=== PATIENT | female | born 1955 | race Caucasian/White ===

== ENCOUNTER 2016-05-09 08:23 | Day surgery (SDC) | payer MEDICAID ==
[~2016-05-09 08:23] MED LIST: RINGERS SOLUTION,LACTATED 1,000 ML IV PRN
[2016-05-09 08:43] LABS: Hematocrit 40.9 % (37.0-47.0); Hemoglobin 13.6 gm/dL (12.5-16.0); Mean Cell Volume 94.2 fl (78-100); Mean Corpuscular Hemoglobin 31.3 pg (27-31); Mean Corpuscular Hgb Conc 33.3 g/dl (32-36); Mean Platelet Volume 9.1 fl (6.0-9.5); Neutrophil % 50.5 % (42-75.0); Platelet Count 207 K/mm3 (150-450); Red Blood Count 4.34 M/mm3 (4.2-5.4); Red Cell Distribution Width 11.7 % (11.5-14.0); White Blood Count 3.9 K/mm3 (4.0-10.5)
[2016-05-09] MEDS ORDERED: RINGERS SOLUTION,LACTATED 1,000 ML IV ONE (08:54)
[2016-05-09] MEDS ORDERED: oxyCODONE HCL/ACETAMINOPHEN 1 TAB TABLET PO PRN (10:17)
[2016-05-09] MEDS ORDERED: IBUPROFEN 600 MG TABLET PO PRN (10:18)
[2016-05-09 11:24] VITALS: BP 105/65
--- NOTE | 2016-05-09 14:02 | OR ---
Operative Report - Dictated Report Narrative: Operative Report: 05/09/2016 Hysteroscopy Dilatation and Curettage Preoperative Diagnosis: Abnormal Appearance of the Endometrium Postoperative Diagnosis: Abnormal Appearance of the Endometrium Procedure: Hysteroscopy Dilatation and Curettage Surgeon: Shruti Solo M.D. Anesthesia: Lizandro Bolanos LUMBER CARRIER, IV sedation Findings: Uterine sound was 8 cm. There was a endometrial polyp on the right aspect of the endometrium just inside the internal cervical os which was removed under hysteroscopic guidance. There was a possible polyp on the left aspect of the endometrium as well which was removed with hysteroscopic guidance Fluids: 400 ml EBL: Minimal Drains: None Complications: None Condition: Stable Pathology: Endometrial curettings and polyp Procedure: The patient was taken to the operating room with IV fluids running. She was placed in the dorsal lithotomy position after anesthesia was induced. A bivalve speculum was placed in the vagina. The anterior lip of the cervix was grasped with a single-tooth tenaculum. Uterine sound was passed into the endometrial cavity with ease. Uterine sound was 8 cm. The cervix was dilated with Malik dilators. The hysteroscope was introduced into the endometrial cavity. The cavity was distended with normal saline. [place] were visualized bilaterally. There was evidence of endometrial polyp on the right aspect of the endometrium just inside internal cervical os which was removed. The hysteroscope was removed. The cavity was sharply curetted without difficulty. The hysteroscope was once again introduced into the cavity. There was a probable endometrial polyp on the left aspect of the endometrium which was removed under hysteroscopic guidance. The cavity was completely curetted. The hysteroscope was removed. The single-tooth tenaculum was removed. Sites were hemostatic. The speculum was removed from the vagina. Sponge counts were correct 2. The patient tolerated the procedure well.
== END 2016-05-09 08:24 | disposition home or self-care (01) ==
LOC: AMB 08:23
PROVIDERS: ATTEND Obstetrics & Gynecology
PROC: 0UDB8ZX Extraction of Endometrium, Via Natural or Artificial Opening Endoscopic, Diagnostic (ICD-10-PCS; principal; 2016-05-09 09:30)
DX: N84.0 Polyp of corpus uteri (principal); Z68.22 Body mass index [BMI] 22.0-22.9, adult; Z85.3 Personal history of malignant neoplasm of breast

== ENCOUNTER 2016-11-01 08:58 | Day surgery (SDC) | payer MEDICAID ==
[2016-11-01] MEDS ORDERED: RINGERS SOLUTION,LACTATED 1,000 ML IV ONE (09:37)
[2016-11-01] MEDS ORDERED: LIDOCAINE HCL/EPINEPHRINE 50 ML VIAL IJ ONE (09:55)
--- NOTE | 2016-11-01 10:32 | OR ---
Operative Report - Dictated Report Narrative: DATE OF PROCEDURE: 11/01/2016 INDICATION: Postmenopausal bleeding with endometrial thickening on pelvic ultrasound PREOPERATIVE DIAGNOSIS: Postmenopausal bleeding, endometrial thickening on pelvic ultrasound POSTOPERATIVE DIAGNOSIS: Same PROCEDURE: Hysteroscopy, D&C , Polypectomy SURGEON: Mallika Deshpande D.O. DRIVER GUARD: OR staff ANESTHESIA: IV sedation, Paracervical block ESTIMATED BLOOD LOSS: minimal URINE OUTPUT: not recorded FLUID REPLACEMENT: 600 mL FINDINGS: Uterus sounded to 6-1/2 cm. 1-2 mm hemorrhagic lesions noted in the right cornual at the 10 - 11 o'clock position relative to the right ostia. Broad sessile-like polyp noted at the 12:00 and 2:00 o'clock positions of the mid uterine cavity. SPECIMEN(S): Endometrial curettings , fibrous polyps TECHNIQUE: The patient was taken to the operating room and placed in dorsal lithotomy position after adequate IV sedation was obtained. After sterile prep and drape, the anterior lip of the cervix was grasped with a long Allis clamp. A paracervical block was given using a 1% lidocaine with epinephrine solution. The uterus sounded to 6.5 cm. The 5 mm hysteroscope was inserted into the uterine cavity with findings as noted above. Using the curet, the entire uterine cavity was curettaged. Remnants of the polyps remained after curetting , therefore hysteroscopic graspers used to remove the remaining portion of the polyps. The hysteroscope was reinserted noting thorough sampling of the entire uterine cavity. Sponge, lap, instrument, needle count correct x 2. DISPOSITION: The patient was transferred to the post anesthesia care unit in good condition.
[2016-11-01] MEDS ORDERED: oxyCODONE HCL/ACETAMINOPHEN 1 TAB TABLET PO PRN (10:38)
[2016-11-01] MEDS ORDERED: MORPHINE SULFATE 2 MG/ML DISP.SYRIN IV PRN (10:38)
[2016-11-01] MEDS ORDERED: IBUPROFEN 800 MG TABLET PO PRN (10:39)
--- NOTE | 2016-11-01 12:09 | PATH ---
PHYSICIAN: Hal Deshpande LAB#: [id number] SPECIMEN DATE: 11/01/2016 SPECIMEN: A. Endometrial curettings B. Endometrial fibrous polyp. CLINICAL INFORMATION: Postmenopausal bleeding. Patient underwent hysteroscopic D &C and polypectomy. GROSS DESCRIPTION: A. The specimen is received in a formalin filled container appropriately designated, "endometrial curettings." The specimen consists of less than 0.1 cm mucoid hurst brown fragment soft tissue fragment. Specimen is entirely submitted in cassette A. B. The specimen is received in a formalin filled container appropriately designated, "endometrial fibrous polyp." The specimen consists of two hurst fibrous 0.3 and 0.1 cm soft tissue fragments specimen is entirely submitted as received in cassette B. DIAGNOSIS: A ENDOMETRIUM, HYSTEROSCOPY WITH DILATATION AND CURETTAGE: -SCANT INACTIVE DETACHED ATROPHIC ENDOMETRIAL GLANDS AND STROMA -LOWER UTERINE SEGMENT ENDOMETRIUM B. ENDOMETRIUM, HYSTEROSCOPY WITH POLYPECTOMY: -ENDOMETRIAL POLYPS COMMENT: Areas of fibroblastic stroma surrounded on three sides with atrophic endometrium coupled with operative findings is diagnostic of endometrial polyps. The uninvolved endometrium shows atrophic changes. These histologic findings correlate with the ultrasonic findings 10/12/2016 of slight thickening. No atypia or malignant neoplasia is identified.
[2016-11-01 12:21] VITALS: BP 115/71
== END 2016-11-01 08:59 | disposition home or self-care (01) ==
LOC: AMB 08:58
PROVIDERS: ATTEND Obstetrics & Gynecology
PROC: 0UDB8ZX Extraction of Endometrium, Via Natural or Artificial Opening Endoscopic, Diagnostic (ICD-10-PCS; principal; 2016-11-01 10:45)
DX: N84.0 Polyp of corpus uteri (principal); N95.0 Postmenopausal bleeding; Z68.20 Body mass index [BMI] 20.0-20.9, adult